=== PATIENT | female | born 1975 | race African-American/Black ===

== ENCOUNTER 2022-03-17 06:26 | Emergency (ER) | payer MEDICAID, OTHER ==
[~2022-03-17] VITALS: Ht 162.6 cm; Wt 125.2 kg
[2022-03-17 09:09] VITALS: BP 111/65
[2022-03-17] MEDS ORDERED: LACT10SO3 PO (10:00)
[2022-03-17] MEDS ORDERED: IBUP800T27 PO (10:00)
== END 2022-03-17 10:10 | disposition home or self-care (01) ==
LOC: ER 06:26
DX: M94.0 Chondrocostal junction syndrome [Tietze] (principal); K59.00 Constipation, unspecified
CPT/HCPCS: 71045; 74018